=== PATIENT | male | born 1985 | race Caucasian/White ===

== ENCOUNTER 2017-10-09 02:09 | Emergency (ER) | payer OTHER ==
[~2017-10-09] VITALS: Ht 185.4 cm; Wt 111.1 kg
[2017-10-09] MEDS ORDERED: LAMICTAL100 MG PO (02:16)
[2017-10-09 03:12] VITALS: BP 136/92
== END 2017-10-09 03:17 | disposition home or self-care (01) ==
LOC: M.ERS 02:09
DX: J02.9 Acute pharyngitis, unspecified (principal); Z88.5 Allergy status to narcotic agent